=== PATIENT | female | born 1940 | race Hispanic/Latino ===

== ENCOUNTER 2018-01-18 14:47 | Emergency (ER) | payer MEDICARE ==
[2018-01-18 15:32] VITALS: BP 125/69
[2018-01-18] MEDS ORDERED: MORPHINE IM ONE (16:16)
[2018-01-18] MEDS ORDERED: ZOFRAN IM ONE (16:16)
--- NOTE | 2018-01-18 16:23 | Emergency Department Report ---
HPI - General Chief Complaint: Extremity Injury, Lower Time Seen by Provider: 01/18/18 16:11 - HPI HPI: Room 9 The patient is a 77-year-old female presenting with a chief complaint of left hip and knee pain. The patient states today she tripped and fell landing on her left knee and the left hip. Patient denies loss of consciousness. Patient states she has severe pain in the left hip left knee since the fall. The patient gets her pain score 9/10. Location: [See above] Duration: Onset today Quality: Pain Severity:9/10 Modifying factors: [see above] Context: [see above] Mode of transportation: [not driving] ED Past Medical Hx - Past Medical History Previous Medical History?: Yes Hx Hypertension: Yes Hx Heart Attack/AMI: Yes (1 year ago) Hx GERD: Yes Hx Arthritis: Yes Hx Headaches / Migraines: Yes Hx Seizures: Yes - Surgical History Past Surgical History?: Yes Hx Coronary Stent: Yes Hx Open Heart Surgery: Yes (Triple) Additional Surgical History: left hip replacement Right knee, cardiac stent, hernia, Balloon expansion of esophagus, high Cholesterol, - Family History Family history: no significant - Social History Smoking Status: Never Smoker Substance Use Type: None - Medications Home Medications: Home Medications Medication Instructions Recorded Confirmed Last Taken Type Ibuprofen [Motrin 800 MG tab] 800 mg PO Q8HR PRN #20 tablet 01/18/18 Unknown Rx oxyCODONE /ACETAMINOPHEN [Percocet 1 - 2 tab PO Q6HR PRN #14 tablet 01/18/18 Unknown Rx 5/325] ED Review of Systems ROS: Stated complaint: HIP INJURY Other details as noted in HPI Musculoskeletal: arthralgia, myalgia Physical Exam - Physical Exam Vital Signs: Vital Signs 01/18/18 15:09 Temperature 98 F Pulse Rate 69 Respiratory 18 Rate Blood Pressure 125/69 O2 Sat by Pulse 96 Oximetry Physical Exam: GENERAL: The patient is well-developed well-nourished elderly female sitting in wheelchair. In mild discomfort. [] HEENT: Normocephalic. Atraumatic. NECK: Trachea midline CHEST/LUNGS: There is no respiratory distress noted. HEART/CARDIOVASCULAR: Regular. There is no tachycardia. 2+ left DP SKIN: There is no diaphoresis. NEURO: The patient is awake, alert, and oriented. The patient is cooperative. The patient has normal speech MUSCULOSKELETAL: There is tenderness to palpation of the mid to lateral aspect of the left knee. Patient complains of pain along the entire left femur and left hip ED Course Vital Signs 01/18/18 15:09 Temperature 98 F Pulse Rate 69 Respiratory 18 Rate Blood Pressure 125/69 O2 Sat by Pulse 96 Oximetry ED Medical Decision Making - Radiology Data Radiology results: report reviewed (left hip x-ray, left femur x-ray, left knee x-ray, left ankle x-ray), image reviewed (left hip x-ray, left femur x-ray, left knee x-ray, left ankle x-ray) interpreted by me: Left knee x-ray-no acute fracture seen Left ankle x-ray-no acute fracture sebastian, mortise intact Left femur [id number] hip replacement in place. No acute fracture seen, no dislocation Left hip x-ray-no acute fracture seen, rami intact - Differential Diagnosis hip fracture, hip contusion, pelvic rami fracture, knee contusion Critical care attestation.: If time is entered above; I have spent that time in minutes in the direct care of this critically ill patient, excluding procedure time. ED Disposition Clinical Impression: Contusion of left hip, Left knee sprain Disposition: TO HOME OR SELFCARE Is pt being admited?: No Does the pt Need Aspirin: No Condition: Stable Instructions: Knee Sprain (ED), Anterior Cruciate Ligament Injury (ED), Knee Immobilizer (ED) Additional Instructions: Return to the emergency department immediately should you develop worsening symptoms, fever, inability to tolerate food or liquid or any other concerns. Prescriptions: Ibuprofen [Motrin 800 MG tab] 800 mg PO Q8HR PRN #20 tablet PRN Reason: Pain oxyCODONE /ACETAMINOPHEN [Percocet 5/325] 1 - 2 tab PO Q6HR PRN #14 tablet PRN Reason: Pain Referrals: ELLA ACUNA MD [Staff Physician] - [facility] (Dr. Acuna is an orthopedic surgeon. Please follow up with him for further evaluation) Time of Disposition: 18:17
[2018-01-18] MEDS ORDERED: TORADOL IM ONE (18:12)
[2018-01-18] MEDS ORDERED: DILAUDID IM ONE (18:12)
--- NOTE | 2018-01-18 18:43 | XRay Report ---
FINAL REPORT PROCEDURE: XR FEMUR 2+V LT TECHNIQUE: LEFT femur radiographs, AP and lateral views. HISTORY: Left pain after trip and fall. COMPARISON: Left hip radiographs dated same day and time. FINDINGS: Fracture (s) and/or Dislocation(s): None . Joint space(s): Left hip replacement. Tricompartmental narrowing of the knee joint. Soft tissues: Vascular calcification. Clips in the soft tissue of the leg. Bone mineralization: Osteopenia. Foreign bodies: None . IMPRESSION: Left hip replacement. Osteopenia and degenerative change. No radiographic evidence of displaced fracture.
--- NOTE | 2018-01-18 18:47 | XRay Report ---
FINAL REPORT PROCEDURE: XR KNEE 3V LT TECHNIQUE: LEFT knee radiographs, AP, lateral and oblique views. CPT 13235 HISTORY: Left knee pain after after trip and fall. COMPARISON: No prior studies are available for comparison. FINDINGS: Fracture (s) and/or Dislocation(s): None . Alignment: Mild genu valgus. Joint space(s): Moderate tricompartmental narrowing and osteophytes. Soft tissues: Vascular calcification. Clips and small calcification seen in the medial soft tissues of the leg. Bone mineralization: Osteopenia. Foreign bodies: None . IMPRESSION: Osteopenia and degenerative change without radiographic evidence of displaced fracture.
--- NOTE | 2018-01-18 18:53 | XRay Report ---
FINAL REPORT PROCEDURE: XR ANKLE 2V LT TECHNIQUE: LEFT ankle radiographs, AP, lateral, and oblique views. CPT 21747 HISTORY: Left ankle pain after fall. COMPARISON: No prior studies are available for comparison. FINDINGS: Fracture (s) and/or Dislocation(s): None. Alignment: Talipes varus. Mild extension of the forefoot. Mild flexion of the toes. Joint space(s): Mild narrowing at the tibiotalar, talonavicular, and tarsometatarsal joints. Soft tissues: Mild soft tissue swelling about the ankle. Vascular calcifications. Clip seen in the soft tissues medially. Bone mineralization: Normal. Foreign bodies: None. Calcaneal spurring: None. IMPRESSION: Osteopenia and degenerative change. No radiographic evidence of displaced fracture.
--- NOTE | 2018-01-18 19:05 | XRay Report ---
FINAL REPORT PROCEDURE: XR HIP 2-3V LT TECHNIQUE: LEFT hip radiographs, 2 views each, including AP view of the pelvis. HISTORY: Left hip pain after trip and fall. COMPARISON: No prior studies are available for comparison. FINDINGS: Fracture (s) and/or Dislocation(s): Subtle lucency through the left superior ramus. Joint space(s): Left hip replacement. Degenerative changes the visualized lumbosacral spine. Mild narrowing of the right hip joint and symphysis. Soft tissues: Vascular calcification. Pelvic phleboliths. Bone mineralization: Osteopenia. Foreign bodies: None. IMPRESSION: Subtle lucency through the left superior ramus, likely patient positioning. Considering osteopenia, consider CT scan if there is concern for subtle fracture. Mild degenerative changes. Left hip replacement.
== END 2018-01-18 19:02 | disposition home or self-care (01) ==
LOC: ED 14:47
DX: S70.02XA Contusion of left hip, initial encounter (principal); S83.92XA Sprain of unspecified site of left knee, initial encounter; I10 Essential (primary) hypertension; I25.2 Old myocardial infarction; K21.9 Gastro-esophageal reflux disease without esophagitis; M19.90 Unspecified osteoarthritis, unspecified site; G43.909 Migraine, unspecified, not intractable, without status migrainosus; E78.00 Pure hypercholesterolemia, unspecified; W18.30XA Fall on same level, unspecified, initial encounter; Y93.89 Activity, other specified; Y92.89 Other specified places as the place of occurrence of the external cause; Y99.8 Other external cause status
CPT/HCPCS: 29505; 73502; 73552; 73562; 73600; 96372; 99283; J1170; J1885; J2270; J2405